=== PATIENT | male | born 1990 | race Caucasian/White ===

== ENCOUNTER 2019-10-26 21:49 | Emergency (ER) | payer MEDICAID, OTHER ==
[~2019-10-26] VITALS: Ht 193 cm; Wt 152.0 kg
[2019-10-26 21:56] VITALS: BP_SYST 158
[2019-10-26 22:26] LABS: BASOPHILS % (AUTO) 0.5 % (0.0-2.0); EOSINOPHILS # (AUTO) 0.3 K/uL (0.0-0.4); HEMATOCRIT 46.1 % (36-54); HEMOGLOBIN 15.4 g/dL (14.0-18.0); LYMPHOCYTES # (AUTO) 3.1 K/uL (1.0-5.5); LYMPHOCYTES % (AUTO) 35.9 % (20.5-51.5); MEAN CORPUSCULAR HEMOGLOBIN 31 pg (27-31); MEAN CORPUSCULAR HGB CONC 34 % (32-36); MEAN CORPUSCULAR VOLUME 93 fL (79.0-98.0); MONOCYTES # (AUTO) 0.9 K/uL (0.0-1.0); MONOCYTES % (AUTO) 10.5 % (1.7-9.3); NEUTROPHILS # (AUTO) 4.3 K/uL (1.8-7.7); NEUTROPHILS % (AUTO) 50.1 % (40.0-70.0); PLATELET COUNT (AUTO) 250 K/uL (130-430); RED BLOOD CELL COUNT(AUTO) 4.96 MIL/uL (4.2-6.2); RED CELL DISTRIBUTION WIDTH 13.5 % (9.0-15.0); WHITE BLOOD COUNT (AUTO) 8.6 K/uL (4.8-10.8)
[2019-10-26 22:37] LABS: CALCIUM 8.7 mg/dL (8.4-11.0); CREATININE 1.18 mg/dL (0.55-1.30); POTASSIUM 3.6 mmol/L (3.5-5.1)
[2019-10-26 22:42] LABS: TOTAL BILIRUBIN 0.3 mg/dL (0.0-1.0)
[2019-10-26] MEDS ORDERED: NACL 0.9% 1,000 ML IV ONE (22:47)
[2019-10-26] MEDS ORDERED: DIPHENHYDRAMINE INJ 50 MG/ML VIAL IVP ONE (23:00)
[2019-10-26] MEDS ORDERED: MORPHINE 4 MG/ML INJ. SYRINGE IVP ONE (23:00)
[2019-10-26] MEDS ORDERED: ONDANSETRON HCL 4 MG/2 ML VIAL IVP ONE (23:00)
[2019-10-27 01:45] VITALS: BP_SYST 138
[2019-10-27 01:49] LABS: BILIRUBIN,URINE NEGATIVE (NEGATIVE); BLOOD, URINE NEGATIVE (NEGATIVE); CLARITY/URINE CLEAR (CLEAR); COLOR,URINE YELLOW (YELLOW); GLUCOSE,URINE NEGATIVE (NEGATIVE); KETONES,URINE NEGATIVE (NEGATIVE); LEUKOCYTE ESTERASE ,URINE NEGATIVE (NEGATIVE); NITRITE, URINE NEGATIVE (NEGATIVE); PH,URINE 6.5 (5.0-8.0); PROTEIN URINE NEGATIVE (NEGATIVE); UROBILINOGEN,URINE 0.2 (0.2-1.0)
== END 2019-10-27 01:45 | disposition home or self-care (01) ==
LOC: SED 21:49
DX: R10.9 Unspecified abdominal pain (principal); F12.90 Cannabis use, unspecified, uncomplicated
CPT/HCPCS: 36415; 74176; 80053; 81003; 83690; 85025; 96374; 96375; 99284; J1200; J2270; J2405; J7030

== ENCOUNTER 2020-09-18 11:09 | Emergency (ER) | payer MEDICAID, SELFPAY ==
[~2020-09-18] VITALS: Ht 193 cm; Wt 154.2 kg
[2020-09-18 11:10] VITALS: BP_SYST 155
[2020-09-20 01:11] LABS: CHLAMYDIA TRACHOMATIS NAA Negative (Negative); NEISSERIA GONORRHOEAE NAA Negative (Negative)
== END 2020-09-18 12:05 | disposition home or self-care (01) ==
LOC: SED 11:09
DX: N39.0 Urinary tract infection, site not specified (principal); R10.2 Pelvic and perineal pain; F41.9 Anxiety disorder, unspecified; F12.90 Cannabis use, unspecified, uncomplicated
CPT/HCPCS: 81002; 87491; 87591; 99283

== ENCOUNTER 2020-09-22 11:59 | Emergency (ER) | payer MEDICAID, SELFPAY | END 2020-09-22 14:08 | disposition left against medical advice (07) | LOC: SED 11:59 | DX: R30.9 Painful micturition, unspecified (principal); Z53.21 Procedure and treatment not carried out due to patient leaving prior to being seen by health care provider ==

== ENCOUNTER 2020-09-24 09:32 | Emergency (ER) | payer MEDICAID, SELFPAY ==
[~2020-09-24] VITALS: Ht 175.3 cm; Wt 104.3 kg
--- NOTE | 2020-09-24 09:40 | NUR ---
Pt walked in to ER with c/o Urinary symtpoms x1 day including left flank pain 03/30. Reports testing positive for covid but denies any sypmtoms at this time. V/S stable, no distress noted.
[2020-09-24 09:44] VITALS: BP_SYST 164
[2020-09-24] MEDS ORDERED: IBUPROFEN 600 MG TABLET PO ONE (09:45)
[2020-09-24] MEDS ORDERED: ACETAMINOPHEN 500 MG TABLET PO ONE (09:45)
--- NOTE | 2020-09-24 09:50 | NUR ---
ER Dr. Oakes at bedside examining patient.
--- NOTE | 2020-09-24 10:00 | NUR ---
Lab with patient for blood draw.
[2020-09-24 10:21] LABS: BASOPHILS # (AUTO) 0.1 K/uL (0.0-0.2); BASOPHILS % (AUTO) 0.5 % (0.0-2.0); EOSINOPHILS # (AUTO) 0.1 K/uL (0.0-0.4); EOSINOPHILS % (AUTO) 0.7 % (0.0-4.0); HEMATOCRIT 45.6 % (36-54); HEMOGLOBIN 15.4 g/dL (14.0-18.0); LYMPHOCYTES # (AUTO) 1.5 K/uL (1.0-5.5); LYMPHOCYTES % (AUTO) 14.1 % (20.5-51.5); MEAN CORPUSCULAR HEMOGLOBIN 31 pg (27-31); MEAN CORPUSCULAR HGB CONC 34 % (32-36); MEAN CORPUSCULAR VOLUME 92 fL (79.0-98.0); MONOCYTES # (AUTO) 0.6 K/uL (0.0-1.0); MONOCYTES % (AUTO) 5.5 % (1.7-9.3); NEUTROPHILS # (AUTO) 8.6 K/uL (1.8-7.7); NEUTROPHILS % (AUTO) 79.2 % (40.0-70.0); PLATELET COUNT (AUTO) 227 K/uL (130-430); RED BLOOD CELL COUNT(AUTO) 4.93 MIL/uL (4.2-6.2); RED CELL DISTRIBUTION WIDTH 12.9 % (9.0-15.0); WHITE BLOOD COUNT (AUTO) 10.9 K/uL (4.8-10.8)
--- NOTE | 2020-09-24 10:25 | NUR ---
Urine sample collected and sent to lab.
[2020-09-24 10:30] LABS: CALCIUM 8.9 mg/dL (8.4-11.0); CREATININE 0.97 mg/dL (0.55-1.30); POTASSIUM 3.7 mmol/L (3.5-5.1)
[2020-09-24 10:36] LABS: ALBUMIN 3.2 g/dL (3.4-4.8); TOTAL BILIRUBIN 0.6 mg/dL (0.0-1.0)
[2020-09-24 10:39] LABS: BILIRUBIN,URINE NEGATIVE (NEGATIVE); CLARITY/URINE CLEAR (CLEAR); COLOR,URINE YELLOW (YELLOW); GLUCOSE,URINE NEGATIVE (NEGATIVE); KETONES,URINE TRACE (NEGATIVE); LEUKOCYTE ESTERASE ,URINE NEGATIVE (NEGATIVE); NITRITE, URINE NEGATIVE (NEGATIVE); PH,URINE 5.5 (5.0-8.0); PROTEIN URINE 1+ (NEGATIVE)
[2020-09-24 10:41] LABS: BLOOD, URINE TRACE (NEGATIVE)
[2020-09-24 10:54] LABS: BACTERIA,URINE FEW /HPF (None Seen); MUCUS,URINE 1+ /LPF (None Seen)
--- NOTE | 2020-09-24 11:06 | NUR ---
Patient transported to radiology via wheelchair, accompanied by staff.
[2020-09-24 12:52] VITALS: BP_SYST 145
--- NOTE | 2020-09-24 12:52 | NUR ---
Patient given written and verbal discharge instructions and verbalizes understanding. ER MD discussed with patient the results and treatment provided. Patient in stable condition. ID arm band removed. Rx of Motrin, colace, norco and augmentin given. Patient educated on pain management and to follow up with PMD. Pain Scale 3. Opportunity for questions provided and answered. Medication side effect fact sheet provided.
== END 2020-09-24 12:52 | disposition home or self-care (01) ==
LOC: SED 09:32
DX: U07.1 COVID-19 (principal); K57.92 Diverticulitis of intestine, part unspecified, without perforation or abscess without bleeding
CPT/HCPCS: 36415; 76376; 80053; 81000-TC; 85025; 87040-TC; 87086; 99284

== ENCOUNTER 2021-01-26 13:06 | Emergency (ER) | payer MEDICAID ==
[~2021-01-26] VITALS: Ht 193 cm; Wt 154.2 kg
--- NOTE | 2021-01-26 13:15 | NUR ---
PT PLACED IN BED 3.
[2021-01-26 13:23] VITALS: BP_SYST 133
--- NOTE | 2021-01-26 13:30 | NUR ---
MD ROBLERO AT BEDSIDE ASSESSING PT.
--- NOTE | 2021-01-26 13:58 | NUR ---
PT TAKEN TO CT SCAN.
[2021-01-26] MEDS ORDERED: NACL 0.9% 1,000 ML IV ONE (14:00)
[2021-01-26] MEDS ORDERED: KETOROLAC TROMETHAMINE 30 MG VIAL IVP ONE (14:00)
[2021-01-26 14:35] LABS: BASOPHILS # (AUTO) 0.1 K/uL (0.0-0.2); BASOPHILS % (AUTO) 0.7 % (0.0-2.0); EOSINOPHILS # (AUTO) 0.3 K/uL (0.0-0.4); EOSINOPHILS % (AUTO) 3.4 % (0.0-4.0); HEMATOCRIT 46.9 % (36-54); HEMOGLOBIN 16.1 g/dL (14.0-18.0); LYMPHOCYTES # (AUTO) 2.3 K/uL (1.0-5.5); LYMPHOCYTES % (AUTO) 27.9 % (20.5-51.5); MEAN CORPUSCULAR HEMOGLOBIN 31 pg (27-31); MEAN CORPUSCULAR HGB CONC 34 % (32-36); MEAN CORPUSCULAR VOLUME 91 fL (79.0-98.0); MONOCYTES # (AUTO) 0.9 K/uL (0.0-1.0); MONOCYTES % (AUTO) 10.5 % (1.7-9.3); NEUTROPHILS # (AUTO) 4.7 K/uL (1.8-7.7); NEUTROPHILS % (AUTO) 57.5 % (40.0-70.0); PLATELET COUNT (AUTO) 235 K/uL (130-430); RED BLOOD CELL COUNT(AUTO) 5.13 MIL/uL (4.2-6.2); RED CELL DISTRIBUTION WIDTH 13.4 % (9.0-15.0); WHITE BLOOD COUNT (AUTO) 8.1 K/uL (4.8-10.8)
[2021-01-26 14:38] LABS: CREATININE 1.2 mg/dL (0.55-1.30); POTASSIUM 3.5 mmol/L (3.5-5.1)
[2021-01-26 14:42] LABS: BILIRUBIN,URINE NEGATIVE (NEGATIVE); CLARITY/URINE SL CLOUDY (CLEAR); COLOR,URINE YELLOW (YELLOW); GLUCOSE,URINE NEGATIVE (NEGATIVE); KETONES,URINE NEGATIVE (NEGATIVE); LEUKOCYTE ESTERASE ,URINE NEGATIVE (NEGATIVE); NITRITE, URINE NEGATIVE (NEGATIVE); PROTEIN URINE NEGATIVE (NEGATIVE); UROBILINOGEN,URINE 0.2 (0.2-1.0)
[2021-01-26 14:43] LABS: BLOOD, URINE TRACE (NEGATIVE)
[2021-01-26 14:44] LABS: ALBUMIN 3.7 g/dL (3.4-4.8); TOTAL BILIRUBIN 0.3 mg/dL (0.0-1.0)
[2021-01-26 14:50] LABS: BACTERIA,URINE None Seen /HPF (None Seen); URINE AMORPHOUS PHOSPHATES 3+ /HPF (None Seen); WBC,URINE NONE SEEN /HPF (0-3)
[2021-01-26] MEDS ORDERED: metroNIDAZOLE 500 mg/NS 100 ML IV ONE ×2 (15:15→15:30)
[2021-01-26] MEDS ORDERED: LEVOFLOXACIN IN DEXTROSE 5 % 100 ML IV ONE (15:15)
--- NOTE | 2021-01-26 15:30 | NUR ---
ASSUMED CARE OF PT. PT AAO AND AMBULATORY REPORTING WORSENING ABDOMINAL PAIN X 3 DAYS. PT REPORTS EPISODES OF NAUSEA AND PAIN WAS 7/10 ON PAIN SCALE ON ARRIVAL. CURRENTLY PT REPORTS PAIN 2/10.
[2021-01-26] MEDS ORDERED: METR500T PO (15:39)
[2021-01-26] MEDS ORDERED: CIPR500T5 PO (15:39)
--- NOTE | 2021-01-26 16:00 | NUR ---
PT RESTING QUIETLY AWAITING DISPOSITION.
--- NOTE | 2021-01-26 17:01 | NUR ---
Patient given written and verbal discharge instructions and verbalizes understanding. DR. OSBALDO YAP MD discussed with patient the results and treatment provided. Patient in stable condition. ID arm band removed. IV catheter removed intact and dressing applied, no active bleeding. Rx SENT TO PHARMACY PER MD. Patient educated on pain management and to follow up with PMD. Pain Scale 0/10. Opportunity for questions provided and answered. Medication side effect fact sheet provided.
[2021-01-26 17:02] VITALS: BP_SYST 133
== END 2021-01-26 17:01 | disposition home or self-care (01) ==
LOC: SED 13:06
DX: K57.92 Diverticulitis of intestine, part unspecified, without perforation or abscess without bleeding (principal); R10.84 Generalized abdominal pain; K21.9 Gastro-esophageal reflux disease without esophagitis
CPT/HCPCS: 36415; 74176; 76376; 80053; 81000; 85025; 87040; 96361; 96365; 96372; 99284; J1885; J1956; J3490; J7030

== ENCOUNTER 2021-02-12 11:53 | Emergency (ER) | payer MEDICAID ==
[~2021-02-12] VITALS: Ht 193 cm; Wt 154.2 kg
[~2021-02-12 11:53] MED LIST: CIPR500T5 PO; METR500T PO
[2021-02-12 12:32] VITALS: BP_SYST 146
--- NOTE | 2021-02-12 12:35 | NUR ---
Patient to ER bed 4 to gown for evaluation. Side rails up. Report given to ADRIAN HUSAIN
--- NOTE | 2021-02-12 12:44 | NUR ---
DR SALAS IN TO ASSESS
[2021-02-12] MEDS ORDERED: KETOROLAC TROMETHAMINE 60 MG/2 ML VIAL IM ONE (13:00)
[2021-02-12] MEDS ORDERED: LORazepam 1 MG TABLET PO ONE (13:00)
--- NOTE | 2021-02-12 13:08 | NUR ---
OFF TO CXR, STEADY GAIT, NO DYSPNEA
--- NOTE | 2021-02-12 13:15 | NUR ---
CALM, ALERT, RESP UNLABORED, SKIN WARM AND DRY. STATED FEELING MUCH BETTER.
[2021-02-12] MEDS ORDERED: FLUO40CA49 PO (13:31)
--- NOTE | 2021-02-12 13:50 | NUR ---
Patient given written and verbal discharge instructions and verbalizes understanding. ER MD discussed with patient the results and treatment provided. Patient in stable condition. ID arm band removed. Rx given. Patient educated on pain management and to follow up with PMD. Pain Scale 0/10 Opportunity for questions provided and answered. Medication side effect fact sheet provided.
[2021-02-12 13:52] VITALS: BP_SYST 136
== END 2021-02-12 13:50 | disposition home or self-care (01) ==
LOC: SED 11:53
DX: R00.2 Palpitations (principal); R07.9 Chest pain, unspecified; F41.9 Anxiety disorder, unspecified; K21.9 Gastro-esophageal reflux disease without esophagitis; Z79.899 Other long term (current) drug therapy
CPT/HCPCS: 71045; 93005; 96372; 99283; J1885

== ENCOUNTER 2021-10-06 10:06 | Emergency (ER) | payer MEDICAID, SELFPAY ==
[~2021-10-06] VITALS: Ht 193 cm; Wt 104.3 kg
[~2021-10-06 10:06] MED LIST changes: +FLUO40CA49 PO
[2021-10-06 11:18] VITALS: BP_SYST 147
--- NOTE | 2021-10-06 11:25 | NUR ---
COVID MALINDA SWAB PERFORMED AT BEDSIDE AND SENT TO LAB
--- NOTE | 2021-10-06 11:30 | NUR ---
PT CAME IN FROM HOME C/O COUGH, FEVER AND CONGESTION X 3 DAYS. PT IS AMBULATORY, AAOX4, VSS
[2021-10-06] MEDS ORDERED: IBUP-1971 PO (12:06)
[2021-10-06] MEDS ORDERED: PSEU30TA36 PO (12:06)
[2021-10-06 12:37] VITALS: BP_SYST 147
--- NOTE | 2021-10-06 12:37 | NUR ---
PT ELOPED, LEFT WITHOUT D/C PAPERWORK
== END 2021-10-06 12:37 | disposition left against medical advice (07) ==
LOC: SED 10:06
DX: J40 Bronchitis, not specified as acute or chronic (principal); K21.9 Gastro-esophageal reflux disease without esophagitis; Z79.899 Other long term (current) drug therapy; Z20.822 Contact with and (suspected) exposure to COVID-19
CPT/HCPCS: 36415; 71045; 99284